=== PATIENT | female | born 1985 | race Caucasian/White ===

== ENCOUNTER 2025-08-29 14:06 | Emergency (ER) | payer OTHER, SELFPAY ==
[2025-08-29] VITALS (12 sets, daily range): BP systolic 124–135; BP diastolic 67–88; PULSE 91–110; RESP 16; TEMP 36.1; O2SAT 90–96; BMI 37.7
--- NOTE | 2025-08-29 14:22 | ED.GENADULT ---
HPI - General Adult General Date Seen: 08/29/25 Chief complaint: Seizure Stated complaint: Seizure Time Seen by Provider: 08/29/25 14:13 History of Present Illness HPI narrative: 39 yo F brought to the ER today by EMS from her family's home for evaluation of a seizure. History is obtained from combination of EMS, patient, and her sister. Patient has a history of high blood pressure (on losartan), elevated BMI (on phentermine), anxiety/depression (on escitalopram). 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 Her brother had seizures as a child but there is no other known family history of epilepsy. The patient also has a history of 1 previous seizure event. She had an event last year that was witnessed by medically trained bystanders thought was a seizure. She apparently had a subsequent workup with doctors where she lives in [place]. Results of the workup are not available to me today. the patient's report of the workup seems confusing and contradictory. The patient says that her doctors ?ruled out? that she had a seizure. Nonetheless , they gave her prescription for Keppra (250 mg twice daily). I wonder if, perhaps, she had had an EEG in follow-up after the seizure that was normal, but her doctor decided to put her on Keppra any way. Although she was prescribed Keppra 250 mg twice a day, she misread the bottle and has only been taking it once per day. She came from [facility], where she lives last week to be here in [place] because her father is getting cancer treatment at [facility]. She did not bring her meds with her. She thinks she has been out of the Keppra for a couple of days. She also drinks alcohol. She and her sister both indoors that she typically drinks socially, an average of 2 drinks every evening. She says her has been encouraging her to cut down on drinking. She does not have a history of alcoholism. She has never been through alcohol treatment. She does not think her alcohol is specifically a problem but she recognizes that she would be more help if she did not drink at all. She has not changed her pattern of alcohol consumption lately. She actually had 2 or perhaps 3 drinks last night, and has not been cutting down. Sister confirms this pattern of alcohol consumption. Her sister does not think that the patient is hiding her drinking or minimizing amount of consumption. This morning she was feeling well except for she felt a little bit dehydrated. She normally drinks ?lots? of water but today it only had about 20 oz. she was in her sister's kitchen cutting some carrots when she began to feel like a seizure was going to come on. She the patient says she felt a buzzing feeling in her ears and called out to her sister. Sister came immediately to the kitchen and found the patient to be sitting up in the chair having a generalized tonic clonic seizures with both arms and both legs extended and stiff in front of her. The patient was not responsive. She was foaming at the mouth and had a little bit of blood coming out of her mouth. The patient's sister held her up until the stiffness stopped and then lowered her gently to the floor. The patient remained unresponsive for several minutes. Sister called EMS almost immediately when the seizure started and response time was about 8 minutes. The patient had barely started to regain consciousness by the time EMS arrived. Initially the patient's sister had estimated length of seizure between 5 and 10 minutes, but it actually turns out that the sister was including the total length of the combined seizure and postictal phase into that estimation. Based on my discussion with the patient's sister, Probably the seizure only lasted a couple of minutes and was followed by several minutes of postictal phase. EMS was able stabs aragon IV in the patient's left foot. Blood sugar was normal. She received part of a bolus of saline in route. She is now back to normal alertness. She is complaining of achiness throughout all of her body especially her legs and her left> right shoulder. She does not have a headache. She is no longer bleeding from her mouth. Related Data Home Medications ?Medication ?Instructions ?Recorded ?Confirmed levetiracetam 250 mg tablet 250 mg PO BID 08/29/25 08/29/25 (Keppra) losartan 50 mg-hydrochlorothiazide 1 tab PO DAILY 08/29/25 08/29/25 12.5 mg tablet (Hyzaar) naltrexone 50 mg tablet 50 mg PO DAILY 08/29/25 08/29/25 pantoprazole 20 mg tablet,delayed 20 mg PO DAILY 08/29/25 08/29/25 release Previous Rx's ?Medication ?Instructions ?Recorded levetiracetam 250 mg tablet 250 mg PO BID #60 tabs 08/29/25 Allergies Allergy/AdvReac Type Severity Reaction Status Date / Time codeine Allergy Unknown Verified 08/29/25 14:17 [facility] Social History Smoking Status: Never smoker Do you use any of these nicotine containing products: None Second hand tobacco smoke exposure: No How often do you have a drink containing alcohol: 4 or more times a week How many standard drinks containing alcohol do you have on a typical day: 1 or 2 AUDIT-C Alcohol total score: 4 Non-prescribed substance use: denies use service: No Exam Narrative: Exam Narrative: Primary Survey: A- patent. Speaking clearly. Phonation normal. No stridor. She does have superficial injuries to the lateral sides of her tongue. No active bleeding. B- breathing easily. Lung sounds clear and equal. Oxygen saturation normal on room air C- no active bleeding. Blood pressure stable. Symmetric pulses and cap refill in 4 extremities. D- alert and oriented x3. GCS 15. No focal deficits. Constitutional: Appears well-developed and well-nourished. Alert. Conversant. Non toxic. HENT: Head: Atraumatic. Nose: Nose normal. Mouth/Throat: Oral mucosa is clear and moist. no trismus. superficial injuries to the lateral sides of her tongue. No active bleeding. TMJs are normal per Pharynx normal. Tonsils symmetric. No tonsillar enlargement, erythema, or exudate. Eyes: Conjunctivae normal. EOM normal. Pupils equal, round, and reactive to light. No scleral icterus. Neck: Normal range of motion. Neck supple. No tracheal deviation present. Cardiovascular: tachycardic, about 105, regular rhythm. No gallop. No friction rub. No murmur heard. Symmetric radial artery pulses Pulmonary/Chest: Effort normal. No stridor. No respiratory distress. No wheezes. No rales. No rhonchi . No tenderness. Abdominal: Soft. Bowel sounds normal. No distension. No mass. No tenderness. No rebound. No guarding. Musculoskeletal: No midline C, T, L-spine tenderness. Pelvis stable. RUE: Normal range of motion but she is tender in endorsing pain in the shoulder.. No tenderness. No deformity LUE: Normal range of motion but she is endorsing pain in his tender in the shoulder and says she feels clicking when she tries to abduct her shoulder away from her body and over her head.. No tenderness. No deformity RLE: Normal range of motion. No edema. No tenderness. No deformity LLE: Normal range of motion. No edema. No tenderness. No deformity Neurological: Alert and oriented to person, place, and time. Normal strength. CN II-VII intact. No sensory deficit. GCS eye subscore is 4. GCS verbal subscore is 5. GCS motor subscore is 6. Normal coordination Skin: Skin is warm and dry. No rash noted. No pallor. Normal capillary refill. Psychiatric: Normal mood. Normal affect. Const: Vital Signs, click to edit/add: Vital Signs - 24 hr 08/29/25 14:16 08/29/25 14:17 08/29/25 14:17 Temperature 97.0 F L Pulse Rate 110 H 107 H Pulse Rate [Pulse Oximeter] 110 H Respiratory Rate 16 Blood Pressure 135/88 Blood Pressure [Ri ght Upper Arm] 125/86 Pulse Oximetry 96 96 96 Oxygen Delivery Me thod Room Air 08/29/25 14:30 08/29/25 14:31 08/29/25 14:32 Temperature Pulse Rate 105 H 105 H 107 H Pulse Rate [Pulse Oximeter] Respiratory Rate 16 Blood Pressure 127/86 Blood Pressure [Ri ght Upper Arm] Pulse Oximetry 92 94 93 Oxygen Delivery Me thod 08/29/25 14:45 08/29/25 15:00 08/29/25 15:01 Temperature Pulse Rate 103 H 103 H 102 H Pulse Rate [Pulse Oximeter] Respiratory Rate Blood Pressure 131/83 Blood Pressure [Ri ght Upper Arm] Pulse Oximetry 96 95 95 Oxygen Delivery Me thod 08/29/25 15:02 08/29/25 16:23 08/29/25 16:31 Temperature Pulse Rate 100 91 Pulse Rate [Pulse Oximeter] Respiratory Rate Blood Pressure 127/67 Blood Pressure [Ri ght Upper Arm] Pulse Oximetry 92 90 Oxygen Delivery Me thod 08/29/25 17:01 Temperature Pulse Rate Pulse Rate [Pulse Oximeter] Respiratory Rate Blood Pressure 124/79 Blood Pressure [Ri ght Upper Arm] Pulse Oximetry Oxygen Delivery Me thod Course Vital Signs Vital signs: Initial Vital Signs Pulse Rate 110 H 08/29/25 14:16 Pulse Oximetry 96 08/29/25 14:16 Vital Signs Pulse Rate 110 H 10/02/25 14:16 Pulse Oximetry 96 08/29/25 14:16 Temperature 97.0 F L 08/29/25 14:17 Pulse Rate 91 08/29/25 16:23 Respiratory Rate 16 08/29/25 14:31 Blood Pressure 124/79 08/29/25 17:01 Pulse Oximetry 90 08/29/25 16:23 Oxygen Delivery Method Room Air 08/29/25 14:17 Medications Administered Medications: Discontinued Medications Generic Name Dose Route Start Last Admin Trade Name Dayday PRN Reason Stop Dose Admin Sodium Chloride 1,000 mls @ 1,000 mls/hr 08/29/25 15:00 08/29/25 16:51 0.9 % Sodium Chloride 1000 Ml IV 08/29/25 15:59 Infused .Q1H NOLAN Infusion Levetiracetam/Sodium Chloride 1,000 mg 08/29/25 14:59 08/29/25 15:37 Levetiracetam 1,000 Mg/100 Ml Infusion IVPB 08/29/25 15:00 1,000 mg ONCE ONE Administration Medical Decision Making [facility] Narrative Medical decision making narrative: 39-year-old female presenting to the ER today by EMS after she had a witnessed generalized tonic clonic seizure at her sister's house today. Broad differential is considered as a potential cause for the seizure. No head trauma, headache, and she has normal mental status here in the ER. At this point I have low suspicion for any focal mass lesion or intracranial hemorrhage. No associated fever or neck stiffness to raise concern for encephalitis/meningitis. Patient does drink alcohol daily but it sounds like not really to excess, typically 2 drinks per day. Her sister confirms this and it does not sound like she is minimizing her hiding her alcohol consumption. She has not changed her alcohol use lately and has not been cutting back. She is not otherwise tremulous or having other symptoms of acute alcohol withdrawal. LFTs mildly abnormal with felt the moment AST of 52 and an ALT of 66 . Total bilirubin normal. Magnesium normal. Potassium normal. Alcohol undetectable. I do note she had a sinus tachycardia when she presented that improved with IV fluids. She also has 1 previous history and is supposed to be on Keppra. It sounds like the patient has not been taking it as prescribed (prescribed 250 mg p.o. b.i.d. but has only been taking once daily. Also, since she came from [place] to [place] because her father's cancer she did not bring her Keppra with her and has not had i any Keppra now for a couple of days. Suspect this could be a flare of underlying epilepsy ER due to questions in adequate medication use. We did load her with a g of Keppra here in the ER. Will give her prescription for her previous dose of Keppra-250 mg p.o. b.i.d.. Laboratory workup shows no hot mildly low sodium, but not low enough to cause seizures. BUN and creatinine are normal. Blood sugars 154. No recent head trauma. She is not anticoagulated. No fever or headache or neck stiffness to raise concern for meningitis. She is not . After having had her seizure she does have bite spears on the lateral side of her tongue. These are not requiring sutures. She also had diffuse body aches and bilateral shoulder pain. X-rays of her shoulders are negative for any fracture or dislocation triggered by the seizure. Discussed workup with the patient and her . They suspect that she probably did have another seizure likely because she has not been sleeping well and because she had not taken her Keppra. She is here in [place] longer than she had planned on being here because she is staying here for her father's Cancer Treatment [facility]. Lab Data Labs: Lab Results 08/29/25 08/29/25 Range/Units 15:00 16:03 WBC 11.63 H (4.50-11.00) K/uL RBC 4.62 (4.00-5.20) m/uL Hgb 13.5 (12.0-16.0) gm/dL Hct 39.6 (33.0-51.0) % MCV 86 (80-100) fL MCH 29 (26-34) pg MCHC 34 (32-36) gm/dL RDW Coeff of Torres 12.0 (11.5-15.5) % Plt Count 208 (140-440) K/uL Neut % (Auto) 77.2 H (42.0-72.0) % Lymph % (Auto) 15.9 L (20-44) % [place] % (Auto) 5.3 (0.0-11.0) % Eos % (Auto) 0.4 (0.0-7.0) % Baso % (Auto) 0.3 (0.0-3.0) % Neut # (Auto) 9.00 H (1.7-7.0) K/uL Lymph # (Auto) 1.80 (0.90-2.90) K/uL [place] # (Auto) 0.60 (0.00-0.90) K/UL Eos # (Auto) 0.00 (0.00-0.50) K/uL Baso # (Auto) 0.00 (0.00-0.30) K/uL Abs Immat Gran (auto) 0.10 (0.00-0.30) K/uL Imm/Tot Granulo (auto) 0.9 % Sodium 132 L (135-149) mmol/L Potassium 3.7 (3.6-5.1) mmol/L Chloride 100 (96-114) mmol/L Carbon Dioxide 26 (20-32) mmol/L Anion Gap 6 L (7-15) mEq/L BUN 13 (5-24) mg/dL Creatinine 0.6 (0.5-1.5) mg/dL Estimated Creat Clear 140.70 Estimated GFR 117 ml/min Glucose 154 H (60-115) mg/dL Calcium 8.3 L (8.4-10.6) mg/dL Magnesium 2.0 (1.5-2.6) mg/dL Total Bilirubin 0.5 (0.1-1.5) mg/dL AST 52 H (12-35) U/L ALT 66 H (4-35) U/L Alkaline Phosphatase 64 (40-150) U/L Total Protein 6.5 (6.0-8.3) g/dL Albumin 4.0 (3.3-5.0) g/dL HCG, Qual Negative (Negative) Ethyl Alcohol < 0.01 (0.01-0.03) % Imaging Data XR right shoulder: Attestation: I have reviewed the pertinent imaging results. Radiologist's impression: Findings/Impression: Bones: Alignment is normal. No displaced fractures or bone lesions. Joint spaces: Unremarkable. Soft tissues: Unremarkable. XR L shoulder: Attestation: I have reviewed the pertinent imaging results. Radiologist's impression: Findings/Impression: Bones: Alignment is normal. No displaced fractures or bone lesions. Joint spaces: Unremarkable. Soft tissues: Unremarkable. Discharge Plan Discharge Clinical Impression: Seizure, Abnormal LFTs Patient Disposition: Home, Self-Care Condition: Stable Instructions: Recurrent Seizures in Adults (ED) Additional Instructions: As we discussed, please restart on Keppra and take your next dose this evening before bed. Continue on Keppra 250 mg by mouth twice a day. Please follow-up with your neurologist at home in [place] within the next couple of weeks (as soon as possible after you get home). Until you can talk to her doctors, please stop taking phentermine. Also your liver function tests are mildly abnormal. Please follow-up with your regular primary care provider at home in [place] for recheck within the next couple of weeks and ask your doctor to retest your lab work. Please do not drive or operate machinery or perform other dangerous activities (for instance, swimming alone or working on ladders or at heights) for 6 months. Return to the ER right away if you have any concerns. Prescriptions: New levetiracetam 250 mg tablet 250 mg PO BID Qty: 60 0RF No Action levetiracetam [Keppra] 250 mg tablet 250 mg PO BID losartan-hydrochlorothiazide [Hyzaar] 50-12.5 mg tablet 1 tab PO DAILY pantoprazole 20 mg tablet,delayed release (DR/EC) 20 mg PO DAILY naltrexone 50 mg tablet 50 mg PO DAILY Follow Up/Referrals: Provider,Not a Local [Primary Care Provider, Family Practice] Stand Alone Forms: [employer] Info Instructions
--- NOTE | 2025-08-29 15:00 | CRLHL7_ITS ---
For Patients: As a result of the Cures Act, medical imaging exams and procedure reports are released immediately into your electronic medical record. You may view this report before your referring provider. If you have questions, please contact your health care provider. Indication: Trauma. Technique: Left shoulder, 3 views. Comparison: None. Findings/Impression: Bones: Alignment is normal. No displaced fractures or bone lesions. Joint spaces: Unremarkable. Soft tissues: Unremarkable. Dictated by Kam Morales MD @ 08/29/2025 3:43:54 PM (Electronically Signed)
--- NOTE | 2025-08-29 15:00 | CRLHL7_ITS ---
For Patients: As a result of the Cures Act, medical imaging exams and procedure reports are released immediately into your electronic medical record. You may view this report before your referring provider. If you have questions, please contact your health care provider. Indication: Trauma. Technique: Right shoulder, 3 views. Comparison: None. Findings/Impression: Bones: Alignment is normal. No displaced fractures or bone lesions. Joint spaces: Unremarkable. Soft tissues: Unremarkable. Dictated by Kam Morales MD @ 08/29/2025 3:44:45 PM (Electronically Signed)
[2025-08-29 15:11] LABS: Hematocrit* 39.6 % (33.0-51.0); Hemoglobin* 13.5 gm/dL (12.0-16.0); Immature Granulocytes Abs Auto 0.10 K/uL (0.00-0.30); Immature Granulocytes Pct Auto 0.9 %; Mean Corpuscular HGB Conc 34 gm/dL (32-36); Mean Corpuscular Hemoglobin 29 pg (26-34); Mean Corpuscular Volume 86 fL (80-100); RDW Coefficient of Variation % 12.0 % (11.5-15.5); Red Blood Count* 4.62 m/uL (4.00-5.20); White Blood Count* 11.63 K/uL (4.50-11.00)
[2025-08-29 15:16] LABS: Lymphocytes Absolute Auto 1.80 K/uL (0.90-2.90); Slide Review Reflex No
--- OUTSIDE RECORDS SUMMARY | 2025-08-29 15:33 | XMS_ITS | Clinical Summary ---
Author Organization [facility] Address [place] [address] Care Team Providers Care Hitcher Name Role Phone Irais Faria DO Primary Care Provider [phone] Allergies Active Allergy Reactions Criticality Noted Date Comments Codeine Nausea Only Low 02/06/2024 Medications losartan (Cozaar) 25 mg tablet Take 1 tablet by mouth in the morning. Active Social History Tobacco Use Types Packs/Day Years Used Date Smoking Tobacco: Never Smokeless Tobacco: Never Tobacco Cessation:Counseling Given: Not Answered Alcohol Use Standard Drinks/Week Comments Yes 0 (1 standard drink = 0.6 oz pur e alcohol) Personal Safety - Abuse Answer Date Rec orded Are there any potential phys ical indicators of abuse/neglect? (Select ALL that apply) NO indicators noted 02/06/2024 Are there any potential beha vioral or historical indicators of abuse/neglect? (Select ALL that apply) NO indicators noted 02/06/2024 Abuse NONE suspected or alleged 2023 Are you being physically or emotionally hurt by someone? No 02/06/2024 Substance Use Types Use/Week Comments Never Comments No Sex and Gender Information Value Date Recorded Sex Assigned at Not on file Legal Sex Female 2:03 PM EDT Gender Identity Not on file Sexual Orientation Not on file Last Filed Vital Signs Vital Sign Reading Time Taken Comments Blood Pressure 144/104 02/06/2024 5:50 PM EDT Pulse 93 02/06/2024 5:50 PM EDT Temperature 36.4 C (97.6 F) 02/06/2024 5:50 PM EDT Respiratory Rate 22 02/06/2024 5:50 PM EDT Oxygen Saturation 98% 02/06/2024 5:50 PM EDT Inhaled Oxygen Concentration - - Weight 108.9 kg (240 lb) 02/06/2024 2:17 PM EDT Height 180.3 cm (5' 11) 02/06/2024 2:17 PM EDT Body Mass Index 33.47 02/06/2024 2:17 PM EDT Plan of Treatment Health Maintenance Due Date Last Done Comments MMR Vaccines (1 of 1 - Stand cheryl series) 1986 Varicella Vaccines (1 of 2 - 13+ 2-dose series) 1998 Eye Exam 2003 Hepatitis B Vaccination (1 o f 3 - 19+ 3-dose series) 2004 Blood Pressure Check 2005 Cervical Cancer Screening 2006 Yearly Physical/Wellness Exam 2007 HPV Vaccine (1 - 3-dose SCDM series) 2012 Depression Screen 11/28/2024 Tobacco Use Screening 02/05/2025 02/06/2024 COVID-19 Vaccine (1 - 2023-2 5 season) 2025 Influenza Vaccine (#1) 2025 Zoster Vaccines (1 of 2) 2035 RSV Immunization 60+ or Preg nant (1 - 1-dose 75+ series) 2060 HIB Vaccines Aged Out No longer eligi ble based on patient's age to complete this topic Hepatitis A Vaccines Aged Out No long er eligible based on patient's age to complete this topic IPV Vaccines Aged Out No longer eligi ble based on patient's age to complete this topic Pneumococcal Immunization 0- 49 Years Aged Out No longer eligible b ased on patient's age to complete this topic Insurance [employer] Care Teams Hitcher Relationship Specialty Start Date End Date Irais Faria DO [address] [place] [id number] PCP - General Family Medicine 02/06/24
--- OUTSIDE RECORDS SUMMARY | 2025-08-29 15:33 | XMS_ITS | Clinical Summary ---
Author Organization [employer] ([facility] 06/17/2024) ([employer] [place], [employer] [place]) Address [address] [place] [address] Care Team Providers Care Electrical Engineering Technologist Name Role Phone Irais Faria DO Primary Care Provider Allergies No known active allergies Medications * This document contains information received from the source organization and may not represent a complete record from that organization. Omeprazole Magnesium (PRILOSEC OTC) 20 MG PO Tablet Delayed Response 08/28/2018 Ac tive escitalopram (LEXAPRO) 20 MG PO Tab 10/02/2018 Active Active Problems Problem Noted Date Diagnosed Date Appendicitis 08/07/2015 Family History Medical History Relation Name Comments Hypertension Father Hypertension Mother Other Other 1 ovarian cyst Hypertension Other 2 Hypertension Sister Other Sister cholecystitis Relation Name Status Comments Father Alive Mother Alive Other 1 Other 2 Sister Social History Tobacco Use Types Packs/Day Years Used Date Smoking Tobacco: Never Smokeless Tobacco: Never Alcohol Use Standard Drinks/Week Comments Yes 0 (1 standard drink = 0.6 oz pur e alcohol) 3 whiskey drinks weekly Comments No Sex and Gender Information Value Date Recorded Sex Assigned at Female 10/31/2018 9:10 AM EST Legal Sex Female 5:24 PM EST Gender Identity Female 10/31/2018 9:10 AM EST Sexual Orientation Straight 10/31/2018 9: 10 AM EST Last Filed Vital Signs Vital Sign Reading Time Taken Comments Blood Pressure 118/70 10/31/2018 9:08 AM EST Pulse 87 03/13/2016 1:06 PM EDT Temperature 36.7 C (98 F) 03/13/2016 1:06 PM EDT Respiratory Rate 16 03/13/2016 1:06 PM EDT Oxygen Saturation 98% 03/13/2016 1:06 PM EDT Inhaled Oxygen Concentration - - Weight 116 kg (256 lb) 10/31/2018 9:08 AM EST Height 175.3 cm (5' 9) 10/31/2018 9:08 AM EST Body Mass Index 37.8 10/31/2018 9:08 AM EST Plan of Treatment Health Maintenance Due Date Last Done Comments SCREENING: HEPATITIS C 1985 SCREENING: DEPRESSION 1997 SCREENING:HIV 2000 HEALTH MAINTENANCE EXAM (ADULT) 2004 VACCINE: HEPATITIS B (1 of 3 - 19+ 3-dose series) 2004 VACCINE: TETANUS,DIPHTHERIA BOOSTER (TD BOOSTER) EVERY 10 YEARS 2004 VACCINE: TETANUS,DIPHTHERIA,PERTUSSIS (TDAP) FIRST DOSE ADULT 2004 Vaccines: HPV (1 - 3-dose SCDM series) 2012 VACCINE: INFLUENZA (#1) 2025 09/04/20 20, 12/27/2019, 12/27/2019, Additional history exists VACCINE: COVID-19 ( season) 2025 03/31/2021 Pap Smear 11/08/2025 11/08/2022, 02/2018, 12/30/2016, Additional history exists Cervical Cancer Screening 11/08/2027 HPV Every 5 Years 11/08/2027 11/08/2022 Pneumococcal Vaccine: Pediatrics (0 to 5 Years) and At-Risk Patients (6 to 64 Years) Aged Out No longer eligible based on patient's age to complete this topic VACCINE: HEPATITIS A Aged Out No long er eligible based on patient's age to complete this topic Vaccines: HIB Aged Out No longer elig ible based on patient's age to complete this topic Vaccines: IPV Aged Out No longer elig ible based on patient's age to complete this topic Vaccines: Meningococcal B Aged Out No longer eligible based on patient's age to complete this topic Vaccines: Meningococcal Aged Out No l onger eligible based on patient's age to complete this topic Vaccines: Rotavirus Aged Out No longe r eligible based on patient's age to complete this topic Procedures Procedure Name Priority Date/Time Associated Diagnosis Comments HPV DNA DETECTION Routine 11/08/2022 2:4 9 PM EST Encounter for gynecological examination (general) (routine) without abnormal findings CYTOLOGY, PAP TEST (THIN PREP) Routine 11/08/2022 2:49 PM EST Encounter for gynecological examination (general) (routine) without abnormal findings from Last 3 Months or Most Recently Relevant to Health Maintenance Results * Human Papillomavirus (HPV) DNA Detection (11/08/2022 2:49 PM EST) Specimen Submitted Cervix 11/15/2022 10:32 AM EST [facility] (CLIA #: [id number]) HPV Genotype 16 Not Detected Not Detected 11/15/2022 10:32 AM [facility] (CLIA #: [id number]) HPV Genotype 18 Not Detected Not Detected 11/15/2022 10:32 AM EST [facility] (CLIA #: [id number]) Other HPV High Risk Not Detected Not Detected 11/15/2022 10:32 AM [facility] (CLIA #: [id number]) Methodology Methodology: Katherine tavia HPV Test (FDA approved). This test is used to detect the presence of human papillomavirus (HPV) types 16, 18 and other high risk types(31, 33, 35, 39, 45, 51, 52, 56, 58, 59, 66, 68). 11/15/2022 10:32 AM [facility] (CLIA #: [id number]) Pap SPECIMEN FROM UTERINE CERVIX / Unknown 11/08/2022 2:49 PM EST 11/09/2022 2:13 PM EST Angelita Pope MD LAB MOLECULAR ORDERABLES Fi nal Result [facility] (CLIA #: [id number]) [facility]. [address] [place] [address] * Cytology, Pap Test (Thin Prep) (11/08/2022 2:49 PM EST) CASE REPORT Gynecologic Cytology Case: [id number] Authorizing Provider: Angelita Pope MD Collected: 11/08/2022 02:49 PM Ordering Location: [facility] - Received: 11/09/2022 02:12 PM [place] First Screen: Rosa Hidalgo Specimen: Pap Test - ThinPrep, Cervix 11/15/2022 10:32 AM EST [facility] (CLIA#: [id number]) SPECIMEN ADEQUACY: Satisfactory for evaluation: endocervical/trans formation zone component present. 11/15/2022 10:32 AM EST [facility] (CLIA#: [id number]) INTERPRETATI ON: NEGATIVE FOR INTRAEPITHELIAL LESION OR MALIGNANCY 11/15/2022 10:32 AM EST [facility] (CLIA#: [id number]) at 1032 EST COMMENTS (ADDITIONAL FINDINGS): Fungal organisms identified, morphologically consistent with Rosina spp. 11/15/2022 10:32 AM EST [facility] (CLIA#: [id number]) SPECIMEN CHARACTERIST ICS: A. Cervix. Pap sample received in ThinPrep Preservcyt vial. Slides: 1 ThinPrep - Pap Slide, Imaged x1 Specimen processed successfully by automated memorial counselor device. [facility], [place], [place] This specimen was prepared and screened at [facility], [address] [place] [id number] 11/15/2022 10:32 AM EST [facility] (CLIA#: [id number]) LMP/MENSTRUA L STATUS: 10/14/22 11/15/2022 10:32 AM EST [facility] (CLIA#: [id number]) HPV TEST REQUEST: HPV Cotesting 11/15/2022 10:32 AM [facility] (CLIA#: [id number]) DX CATEGORY: NILM 11/15/2022 10:32 AM [facility] (CLIA#: [id number]) . The pap test is a screening test with limited sensitivity for the detection of cervical cancers and cancer precursors and is subject to both false negative and false positive results. This report should be interpreted in conjunction with patient history, clinical evaluation, and HPV test results. 11/15/2022 10:32 AM [facility] (CLIA#: [id number]) Pap SPECIMEN FROM UTERINE CERVIX / Unknown 11/08/2022 2:49 PM EST 11/09/2022 2:12 PM EST Angelita Pope MD LAB CYTOLOGY ORDERABLES Fin al Result [facility] (CLIA#: [id number]) [address] [place], [place] [id number] from Last 3 Months or Most Recently Relevant to Health Maintenance Advance Directives For more information, please contact: [phone] * Full CPR (Latest Code Status on File) Date Activated Date Inactivated Comments 08/07/2015 3:30 AM 08/07/2015 7:45 PM Care Teams Electrical Engineering Technologist Relationship Specialty Start Date End Date Irais Faria DO [address] [place] [address] PCP - General Family Medicine 09/28/18
--- OUTSIDE RECORDS SUMMARY | 2025-08-29 15:33 | XMS_ITS | Referral Summary ---
Author Organization [employer] ([facility] 06/17/2024) ([place], [place]) Address [address] [place] [address] Care Team Providers Care Net Lead Developer Name Role Phone Irais Faria DO Primary [...] Problem Noted Date Diagnosed Date Appendicitis 08/07/2015 Social History Tobacco Use Types Packs/Day Years [...] 10/31/2018 9:08 AM EST Plan of Treatment Not on file Procedures Procedure Name Priority Date/Time Associated Diagnosis [...] EST) Specimen Submitted Cervix 11/15/2022 10:32 AM [facility] (CLIA #: [id number]) HPV Genotype 16 Not Detected Not Detected 11/15/2022 10:32 AM [facility] (CLIA #: [id number]) HPV Genotype 18 Not Detected Not Detected 11/15/2022 10:32 AM [facility] (CLIA #: [id number]) Other HPV High Risk Not Detected Not Detected 11/15/2022 10:32 AM [facility] (CLIA #: [id number]) Methodology Methodology: Katherine tavia HPV Test (FDA approved). This test is used to detect the presence of human papillomavirus (HPV) types 16, 18 and other high risk types(31, 33, 35, 39, 45, 51, 52, 56, 58, 59, 66, 68). 11/15/2022 10:32 AM [facility] (CLIA #: [id number]) Pap SPECIMEN FROM UTERINE CERVIX / Unknown 11/08/2022 2:49 PM EST 11/09/2022 2:13 PM EST Angelita Pope MD LAB MOLECULAR ORDERABLES [facility] Result [facility] (CLIA #: [id number]) [address] [place] [address] * Cytology, Pap Test (Thin Prep) (11/08/2022 2:49 PM EST) CASE REPORT Gynecologic Cytology Case: [id number] Authorizing Provider: Angelita Pope MD Collected: 11/08/2022 02:49 PM Ordering Location: [facility] - Received: 11/09/2022 02:12 PM [place] First Screen: Rosa Hidalgo Specimen: Pap Test - ThinPrep, Cervix 11/15/2022 10:32 AM EST [facility] (CLIA#: [id number]) SPECIMEN ADEQUACY: Satisfactory for evaluation: endocervical/trans formation zone component present. 11/15/2022 10:32 AM EST [facility] (CLIA#: [id number]) INTERPRETATI ON: NEGATIVE FOR INTRAEPITHELIAL LESION OR MALIGNANCY 11/15/2022 10:32 AM EST [facility] (CLIA#: [id number]) at 1032 EST COMMENTS (ADDITIONAL FINDINGS): Fungal organisms identified, morphologically consistent with Rosina spp. 11/15/2022 10:32 AM EST [facility] (CLIA#: [id number]) SPECIMEN CHARACTERIST ICS: A. Cervix. Pap sample received in ThinPrep Preservcyt vial. Slides: 1 ThinPrep - Pap Slide, Imaged x1 Specimen processed successfully by automated probation manager device. [facility], [place], [place] This specimen was prepared and screened at [facility], [address] [place] [id number] 11/15/2022 10:32 AM EST [facility] (CLIA#: [id number]) LMP/MENSTRUA L STATUS: 10/14/22 11/15/2022 10:32 AM [facility] (CLIA#: [id number]) HPV TEST REQUEST: HPV Cotesting 11/15/2022 10:32 AM [facility] (CLIA#: [id number]) DX CATEGORY: NILM 11/15/2022 10:32 AM [facility] (CLIA#: [id number]) . The pap test is a screening test with limited sensitivity for the detection of cervical cancers and cancer precursors and is subject to both false negative and false positive results. This report should be interpreted in conjunction with patient history, clinical evaluation, and HPV test results. 11/15/2022 10:32 AM [facility] (CLIA#: [id number]) Pap SPECIMEN FROM UTERINE CERVIX / Unknown 11/08/2022 2:49 PM EST 11/09/2022 2:12 PM EST Angelita Pope MD LAB CYTOLOGY ORDERABLES Fin al Result [facility] (CLIA#: [id number]) [address] [place], [place] [id number] from Last 3 Months or Most Recently Relevant to Health Maintenance Advance Directives For more information, please contact: [phone] * Full CPR (Latest Code Status on File) Date Activated Date Inactivated Comments 08/07/2015 3:30 AM 08/07/2015 7:45 PM Care Teams Net Lead Developer Relationship Specialty Start Date End Date Irais Faria DO [address] [place] [address] PCP - General Family Medicine 09/28/18
--- OUTSIDE RECORDS SUMMARY | 2025-08-29 15:33 | XMS_ITS | Encounter Summary ---
Author Organization [facility] r Address [address] [place] [address] Care Team Providers Care Restaurant Maintenance Technician Name Role Phone Irais Faria DO Primary Care Provider [phone] Encounter Details Date Type Department Care Team (Late st Contact Info) Description 02/06/2024 Procedure [facility] [place] [address] Social History Smoking Status as of 02/06/2024 Tobacco Use Types Packs/Day Years Used Date Smoking Tobacco: Never Smokeless Tobacco: Never Tobacco Cessation:Counseling Given: Not Answered Alcohol Use as of 02/06/2024 Alcohol Use Standard Drinks/Week Comments Yes 0 [...] hurt by someone? No 02/06/2024 Substance Use as of 02/06/2024 Substance Use Types Use/Week Comments Never Comments No Sex and Gender Information Value Date Recorded Sex Assigned at Not on file Legal Sex Female 2:03 PM EDT Gender Identity Not on file Sexual Orientation Not on file documented as of this encounter Plan of Treatment Not on file documented as of this encounter Visit Diagnoses Not on filedocumented in this encounter Care Teams Restaurant Maintenance Technician Relationship Specialty Start Date End Date Irais Faria DO [address] [place] [address] PCP - General Family Medicine 02/06/24 documented as of this encounter
--- OUTSIDE RECORDS SUMMARY | 2025-08-29 15:33 | XMS_ITS | Clinical Summary ---
Author Organization [facility] stem Address [address] [place] [address] Care Team Providers Care Shoe Repairer Apprentice Name Role Phone Irais Faria DO Primary Care Provider [phone] Allergies Active Allergy Reactions Criticality Noted Date Comments Codeine Shortness Of Breath High 05/22/2024 Medications pantoprazole (PROTONIX) [address] tablet Take 1 tablet by mouth 2 (two) times daily. 05/09/2024 Active losartan-hydroCH LOROthiazide (HYZAAR) 50-12.5 mg per tablet Take 1 tablet by mouth daily. 03/16/2024 Active multivitamin (THERAGRAN) tablet Take 1 tablet by mouth daily. Active escitalopram oxalate (LEXAPRO) 20 MG tablet Take 1 tablet by mouth daily. 03/08/2024 Active cetirizine (ZYRTEC) 10 MG tablet Take 10 mg by mouth daily. Active levETIRAcetam (KEPPRA) 250 MG tablet Take 1 tablet by mouth 2 (two) times daily. 04/25/2024 Active Active Problems Problem Noted Date Diagnosed Date Primary hypertension 08/15/2024 BILL (obstructive sleep apnea) 08/15/2024 Morbid obesity 08/15/2024 Social History Tobacco Use Types Packs/Day Years Used Date Smoking Tobacco: Never Assessed Comments Unknown Sex and Gender Information Value Date Recorded Sex Assigned at Not on file Legal Sex Female 2:27 PM EDT Gender Identity Not on file Sexual Orientation Not on file Last Filed Vital Signs Vital Sign Reading Time Taken Comments Blood Pressure 128/80 05/22/2024 8:16 AM EDT Pulse 68 05/22/2024 8:16 AM EDT Temperature - - Respiratory Rate - - Oxygen Saturation 96% 05/22/2024 8:16 AM EDT Inhaled Oxygen Concentration - - Weight 124.6 kg (274 lb 9.6 oz) 05/22/2024 8:16 AM EDT Height 177.8 cm (5' 10) 05/22/2024 8:16 AM EDT Body Mass Index 39.4 05/22/2024 8:16 AM EDT Plan of Treatment Health Maintenance Due Date Last Done Comments HEPATITIS C SCREENING 1985 SDOH FOOD 1985 Social Determinants of Health 1986 BMI/BMI PERCENTILE ANNUAL MEASUREMENT 1988 All Patients [facility] HIV Screening Ages 15-65 2000 Adult Tdap/Td Vaccine 2004 HEPATITIS B VACCINES (1 of 3 - 19+ 3-dose series) 2004 Cervical Cancer Screening 2006 HPV VACCINES (1 - 3-dose SCD M series) 2012 Depression Screening 11/28/2024 Hypertension Control 05/22/2025 05/22/2024 BASIC METABOLIC PROFILE 05/28/2025 05/28/20 24, 09/10/2022 INFLUENZA VACCINE (#1) 2025 4, 12/27/2019 SHINGRIX VACCINE SERIES (1 o f 2) 2035 Pneumococcal Vaccine Aged Out No long er eligible based on patient's age to complete this topic Insurance [employer] Care Teams Shoe Repairer Apprentice Relationship Specialty Start Date End Date Irais Faria DO [address] [place] [address] PCP - General Family Medicine 05/22/24
[2025-08-29] MEDS: LEVETIRACETAM 1,000 mg/100 ml INFUSION 1000 MG IVPB (15:37)
[2025-08-29 16:42] LABS: Albumin* 4.0 g/dL (3.3-5.0); Chloride* 100 mmol/L (96-114); Sodium* 132 mmol/L (135-149)
[2025-08-29 16:43] LABS: Potassium* 3.7 mmol/L (3.6-5.1)
[2025-08-29 16:45] LABS: Alanine Aminotransferase* 66 U/L (4-35); Anion Gap 6 mEq/L (7-15); Aspartate Amino Transferase* 52 U/L (12-35); Blood Urea Nitrogen* 13 mg/dL (5-24); Carbon Dioxide* 26 mmol/L (20-32); Creatinine* 0.6 mg/dL (0.5-1.5); Est. Creatinine Clearance* 140.70; Estimated Glomerular Filt Rate 117 ml/min; Total Protein* 6.5 g/dL (6.0-8.3)
[2025-08-29 16:46] LABS: Alkaline Phosphatase* 64 U/L (40-150); Bilirubin Total* 0.5 mg/dL (0.1-1.5); Calcium* 8.3 mg/dL (8.4-10.6); Glucose* 154 mg/dL (60-115)
[2025-08-29 16:49] LABS: HCG Qualitative Serum* Negative (Negative)
[2025-08-29 16:50] LABS: Ethanol* < 0.01 % (0.01-0.03)
== END 2025-08-29 17:47 | disposition home or self-care (01) ==
PROVIDERS: Emergency Provider Emergency Medicine
DX: R56.9 Unspecified convulsions (principal); R94.5 Abnormal results of liver function studies; M25.512 Pain in left shoulder; M25.511 Pain in right shoulder
CPT/HCPCS: 36415; 73030; 80053; 82077; 83735; 84703; 85025; 96361; 96365; 96374; 99283; 99284; 99285; J1953; J7030